=== PATIENT | female | born 1965 | race Caucasian/White ===

== ENCOUNTER 2021-01-14 10:58 | Emergency (ER) | payer SELFPAY ==
[~2021-01-14] VITALS: Ht 162.6 cm; Wt 90.7 kg
[~2021-01-14 10:58] MED LIST: ADDERALL 30 MG30 MG PO; CELEXA40 MG PO; GABAPENTIN300 MG PO
[2021-01-14] MEDS ORDERED: ONDANSETRON HCL INJ 2MG/ML 2ML 2 MG/ML VIAL IV STA (11:28)
[2021-01-14] MEDS ORDERED: SODIUM CHLORIDE 0.9% 1000ML 1,000 ML IV STA (11:28)
[2021-01-14 11:37] LABS: BASOPHILS % 0.5 % (0.0-1.0); EOSINOPHILS # (AUTO) 0.2 (0.0-0.4); EOSINOPHILS % 2.8 % (0.0-6.0); HEMATOCRIT 46.8 % (34.2-44.1); HEMOGLOBIN 15.3 g/dL (12.0-16.0); LYMPHOCYTES # (AUTO) 1.8 (1.0-3.2); LYMPHOCYTES % 29.5 % (18.0-39.1); MEAN CORPUSCULAR HEMOGLOBIN 29.8 pg (28-32); MEAN CORPUSCULAR HGB CONC 32.7 g/dL (31-35); MEAN CORPUSCULAR VOLUME 91.1 fL (81-99); MONOCYTES # (AUTO) 0.5 (0.2-0.8); MONOCYTES % 8.5 % (4.4-11.3); NEUTROPHILS # (AUTO) 3.6 (2.1-6.9); PLATELET COUNT 253 x10e3/uL (140-360); RED BLOOD COUNT 5.14 x10e6/uL (3.6-5.1); RED CELL DISTRIBUTION WIDTH 12.8 % (11.7-14.4)
[2021-01-14 12:00] LABS: ALBUMIN 3.8 g/dL (3.5-5.0); ALBUMIN/GLOBULIN RATIO 1.1 (0.8-2.0); CALCIUM 9.6 mg/dL (8.4-10.2); CREATININE, SERUM 0.98 mg/dL (0.57-1.11)
[2021-01-14] MEDS ORDERED: METRONIDAZOLE 500 MG TAB PO ONE (13:30)
[2021-01-14] MEDS ORDERED: FLAGYL500 MG PO (13:36)
[2021-01-14] MEDS ORDERED: ONDANSETRON ODT4 MG PO (13:36)
[2021-01-14 14:27] VITALS: BP 117/54
== END 2021-01-14 14:31 | disposition home or self-care (01) ==
LOC: ER 11:02
DX: A09 Infectious gastroenteritis and colitis, unspecified (principal); M79.7 Fibromyalgia; F32.9 Major depressive disorder, single episode, unspecified; F90.9 Attention-deficit hyperactivity disorder, unspecified type
CPT/HCPCS: 36415; 80053; 83690; 85025; 99284; J2405; J7030